=== PATIENT | female | born 1985 | race Caucasian/White ===

== ENCOUNTER → 2022-04-07 08:59 | Outpatient (CLI) | payer OTHER, SELFPAY ==
[2022-04-07 11:03] LABS: HCG Quantitative /Beta subunit 5123.3 mIU/mL
== END ==
PROVIDERS: Family Provider Family Medicine; PCP Family Medicine; Referring Provider Obstetrics & Gynecology; Visit Provider Obstetrics & Gynecology
DX: O20.9 Hemorrhage in early pregnancy, unspecified (principal); Z3A.00 Weeks of gestation of pregnancy not specified
CPT/HCPCS: 36415; 84702

== ENCOUNTER → 2022-04-09 08:30 | Outpatient (CLI) | payer OTHER, SELFPAY ==
[2022-04-09 09:15] LABS: HCG Quantitative /Beta subunit 6022.9 mIU/mL
[2022-04-09 10:48] LABS: TSH w/ Reflex to FT4 1.78 uIU/mL (0.47-4.68)
== END ==
PROVIDERS: Family Provider Family Medicine; PCP Family Medicine; Referring Provider Obstetrics & Gynecology; Visit Provider Obstetrics & Gynecology
DX: E06.3 Autoimmune thyroiditis (principal); O20.9 Hemorrhage in early pregnancy, unspecified; Z3A.00 Weeks of gestation of pregnancy not specified
CPT/HCPCS: 36415; 84443; 84702

== ENCOUNTER → 2022-04-11 12:02 | Outpatient (CLI) | payer OTHER, SELFPAY ==
[2022-04-11 12:56] LABS: HCG Quantitative /Beta subunit 1694.9 mIU/mL
== END ==
PROVIDERS: Family Provider Family Medicine; PCP Family Medicine; Referring Provider Obstetrics & Gynecology; Visit Provider Obstetrics & Gynecology
DX: O20.9 Hemorrhage in early pregnancy, unspecified (principal); Z3A.00 Weeks of gestation of pregnancy not specified
CPT/HCPCS: 36415; 84702

== ENCOUNTER → 2022-04-13 06:55 | Outpatient (CLI) | payer OTHER, SELFPAY ==
--- NOTE | 2022-04-13 06:56 | DI.US.S_ITS ---
PROCEDURE: US PELVIC COMPLETE INDICATIONS: RECENT MISCARIAGE ASSESS FOR RETAINED PRODUCTS TECHNIQUE: Real-time scanning was performed of the pelvic organs, with image documentation. Additional endovaginal scanning was necessary due to incomplete visualization of the adnexal and endometrial structures by transabdominal scanning. COMPARISON: [facility], US, PELVIC COMPLETE, 01/04/2013, 7:58. FINDINGS: Uterus: Uterus is anteverted and normal in size at 10.3 x 5.9 x 5.2 cm. The myometrium is homogeneous. The endometrium measures 8 mm combined thickness. The endometrial echo complex is homogeneous without increased vascularity. Ovaries: The right ovary measures 4.0 x 2.5 x 1.7 cm, with a calculated ovarian volume of 9.0 cc. The left ovary measures 3.3 x 3.4 x 1.7 cm, with a calculated ovarian volume of 9.5 cc. The ovaries have a normal sonographic appearance. Less than 12 follicles can be seen in each ovary. No adnexal masses are seen. Other: No pathologic free abdominal or pelvic fluid. IMPRESSION: No sonographic signs of retained products of conception. We strive to produce accurate, complete, and clear reports of imaging services. To assist us in improving patient care, this report was composed using standard report templates and voice recognition software. Therefore, it may contain abnormal punctuation, insertions and/or omissions. Occasional wrong-word or sound-alike substitutions may occur. Though we review the report and make efforts to correct it, we do recommend that the report be read carefully in proper context to recognize any text inaccuracies. Approved by: Drake Ansari M.D. on 04/13/2022 at 7:53
== END ==
PROVIDERS: Family Provider Family Medicine; PCP Family Medicine; Referring Provider Family Medicine; Visit Provider Family Medicine
DX: O03.9 Complete or unspecified spontaneous abortion without complication (principal)
CPT/HCPCS: 76830; 76856

== ENCOUNTER → 2022-11-11 09:10 | Outpatient (CLI) | payer OTHER, SELFPAY ==
[2022-11-11 09:55] LABS: Add Manual Diff / Slide Review NO; Basophils Absolute Auto 100 /uL (0-100); Eosinophils Absolute Auto 100 /uL (0-450); Hemoglobin 11.5 g/dL (12.0-16.0); Lymphocytes Absolute Auto 1300 /uL (1100-4500); Lymphocytes Percent Auto 24.2 % (25-40); Mean Corpuscular HGB Conc 32.9 % (30-36); Mean Corpuscular Volume 85.3 fL (80-100); Monocytes Absolute Auto 600 /uL (0-900); Monocytes Percent Auto 10.3 % (3-14); Neutrophils Absolute Auto 3500 /uL (1500-7000); Neutrophils Percent Auto 62.5 % (50-75); Platelet Count 242 X10^3/uL (150-400); Red Cell Distribution Width 13.2 % (11.6-14.8); White Blood Cell Count 5.6 X10^3/uL (4.5-11.0)
[2022-11-11 10:33] LABS: Alanine Aminotransferase 17 IU/L (<35); Albumin 4.3 g/dL (3.5-5.0); Albumin Globulin Ratio 1.4 (1.0-2.8); Alkaline Phosphatase 40 U/L (38-126); Aspartate Aminotransferase 20 IU/L (14-36); BUN Creatinine Ratio 10.3 (6-22); Bilirubin Total 0.5 mg/dL (0.2-1.3); Blood Urea Nitrogen 9 mg/dL (7-17); Calcium 9.6 mg/dL (8.4-10.2); Carbon Dioxide 30 mmol/L (22-32); Chloride 100 mmol/L (98-107); Estimated Glomerular Filt Rate > 60 mL/min (>60); Globulin 3.1 g/dL (1.7-4.1); Glucose 76 mg/dL (70-100); HEMOLYSIS < 15 (0-50); Sodium 137 mmol/L (137-145); Total Protein 7.4 g/dL (6.3-8.2)
[2022-11-11 10:42] LABS: Free T3, Triiodothyronine Free 2.87 pg/mL (2.77-5.27)
[2022-11-11 10:43] LABS: Vitamin D 25 Hydroxy (D3) 41.5 ng/mL (30.0-100.0)
[2022-11-11 10:56] LABS: Thyroid Stimulating Hormone 4.03 uIU/mL (0.47-4.68)
[2022-11-11 11:06] LABS: Ferritin 7 ng/mL (6-137)
[2022-11-11 11:20] LABS: Vitamin B12 730 pg/mL (239-931)
[2022-11-13 14:35] LABS: Folate, RBC 1198 ng/mL (>498); Hematocrit 33.6 % (34.0-46.6); Hemolysate 402.5 ng/mL (Not Estab.)
[2022-11-17 10:44] LABS: Percent Free Testosterone 0.94 % (0.50-2.80); Testosterone Free 0.36 ng/dL (0.10-0.85); Testosterone Total 38.1 ng/dL (10.0-55.0)
== END ==
PROVIDERS: Family Provider Family Medicine; PCP Family Medicine; Referring Provider Family Medicine; Visit Provider Family Medicine
DX: D64.9 Anemia, unspecified (principal); E03.9 Hypothyroidism, unspecified; E06.3 Autoimmune thyroiditis; R53.83 Other fatigue; E55.9 Vitamin D deficiency, unspecified
CPT/HCPCS: 36415; 80053; 82306; 82607; 82728; 82747; 83735; 84402; 84403; 84439; 84443; 84481; 85014; 85025

== ENCOUNTER 2023-05-05 18:45 | Emergency (ER) | payer OTHER, SELFPAY ==
--- NOTE | 2023-05-05 18:58 | ED.SKABFB ---
HPI - Skin/Abscess/Foreign Bdy General Stated complaint: hit in face with ball, lip laceration Time Seen by Provider: 05/05/23 18:52 History of Present Illness HPI narrative: 37-year-old female presents for evaluation of accidental facial injury that occurred just prior to arrival. Patient states she was struck in the face by a ball and began to bleed. She was very concerned because she had a Mohs procedure in the exact same area and just finished healing her wounds. She was afraid that she may have splint open her previous surgical site. Patient reports being up-to-date on her tetanus shot. Related Data Home Medications Medication Instructions Recorded Confirmed multivitamin 1 tab PO DAILY 03/30/22 04/15/23 Previous Rx's Medication Instructions Recorded ferrous sulfate 325 mg (65 mg 325 mg PO Q OTHER DAY #90 tabs 11/11/22 iron) tablet (Feosol) escitalopram oxalate 20 mg tablet 20 mg PO DAILY #90 tabs 02/16/23 (Lexapro) bupropion HCl 150 mg 24 hr tablet, 300 mg (2 x 150 mg) PO QAM #180 02/17/23 extended release tabs levothyroxine 100 mcg tablet 100 mcg PO DAILY #90 tabs 02/25/23 Allergies Allergy/AdvReac Type Severity Reaction Status Date / Time No Known Drug Allergies Allergy Unverified 04/15/23 08:24 Review of Systems Review of Systems Narrative: Negative except as noted above Patient History Medical History Nodular basal cell carcinoma (BCC) (~2022) Acne (~1994) Depression (~1998) ADHD Chicken pox (~1991) Anemia (~1998) Irregular menstrual cycle (~1995) Human papilloma virus (~2004) Herpes (~2005) Abnormal Pap smear of cervix (~2004) Hypothyroidism (~1998) Surgical History Anesthesia History of oral surgery (~2008) Family History Father Hyperlipidemia Hypertension Hypothyroidism Mother Breast cancer History of mastectomy Congestive heart failure Grandfather Prostate cancer Stomach cancer Grandmother Bladder cancer Grandfather Hyperlipidemia Hypertension Grandmother Alzheimer's disease Social History Smoking Status: Never smoker Smoking Status: Never smoker Exam Narrative Exam Narrative: Const: Awake, alert, anxious Mouth: superficial lip abrasion upper L lip. 1cm laceration underside of L upper lip, no through and through injury. Teeth normal Skin: Warm, Dry, 1cm laceration underside L upper lip Neuro: AO x3, CN II-XII grossly intact, moves all extremities MDM - Skin/Abscess/Foreign Bdy MDM Narrative Medical decision making narrative: Laceration to underside of left upper lip. No through and through injury. Teeth are normal. There is no laceration involving the vermilion border. She was up-to-date on her tetanus shot. Patient's primary concern is that she has damaged her Mohs surgical site. There was no evidence that this surgical site has been disrupted, it was extremely well healed and intact. Wound care precautions discussed with the patient at bedside. Discharge Plan Departure Patient Disposition: Home Clinical Impression: Laceration of lip Qualifiers: Encounter type: initial encounter Qualified Code(s): S01.511A - Laceration without foreign body of lip, initial encounter Activity Restrictions/Additional Instructions: Take Tylenol and Motrin as needed for pain. You may apply ice to your lip for comfort and to help with swelling. Your lip laceration we will heal on its own, however for the next several days any time you eat or drink he will need to swish your mouth with clean water. Prescriptions: No Action ferrous sulfate [Feosol] 325 mg (65 mg iron) tablet 325 mg PO Q OTHER DAY Qty: 90 0RF escitalopram oxalate [Lexapro] 20 mg tablet 20 mg PO DAILY Qty: 90 0RF bupropion HCl 150 mg tablet extended release 24 hr 300 mg PO QAM Qty: 180 0RF levothyroxine 100 mcg tablet 100 mcg PO DAILY Qty: 90 3RF multivitamin Tablet 1 tab PO DAILY Referrals: Taisha Méndez DO [Primary Care Provider] - Stand Alone Forms: Patient Portal/API
[2023-05-05 19:02] VITALS: BP 123/80; PULSE 72; RESP 18; TEMP 36.5; O2SAT 100; BMI 24.0
== END 2023-05-05 19:12 | disposition home or self-care (01) ==
PROVIDERS: Emergency Provider Emergency Medicine; Family Provider Family Medicine; PCP Family Medicine
DX: S01.511A Laceration without foreign body of lip, initial encounter (principal); W22.8XXA Striking against or struck by other objects, initial encounter
CPT/HCPCS: 99281

== ENCOUNTER → 2024-04-24 09:21 | Outpatient (CLI) | payer OTHER, SELFPAY ==
[2024-04-24 10:23] LABS: Add Manual Diff / Slide Review NO; Basophils Absolute Auto 0 /uL (0-100); Basophils Percent Auto 0.6 % (0-2); Eosinophils Absolute Auto 100 /uL (0-450); Eosinophils Percent Auto 2.1 % (2-4); Hematocrit 34.6 % (36-46); Hemoglobin 11.5 g/dL (12.0-16.0); Lymphocytes Absolute Auto 1800 /uL (1100-4500); Lymphocytes Percent Auto 33.6 % (25-40); Mean Corpuscular HGB Conc 33.3 % (30-36); Mean Corpuscular Hemoglobin 28.8 PG (26-34); Mean Corpuscular Volume 86.6 fL (80-100); Monocytes Absolute Auto 400 /uL (0-900); Monocytes Percent Auto 7.6 % (3-14); Neutrophils Absolute Auto 3000 /uL (1500-7000); Neutrophils Percent Auto 56.1 % (50-75); Platelet Count 248 X10^3/uL (150-400); Red Cell Distribution Width 12.6 % (11.6-14.8); White Blood Cell Count 5.2 X10^3/uL (4.5-11.0)
[2024-04-24 10:47] LABS: Alanine Aminotransferase 15 IU/L (<35); Albumin 4.3 g/dL (3.5-5.0); Albumin Globulin Ratio 1.6 (1.0-2.8); Alkaline Phosphatase 40 U/L (38-126); Aspartate Aminotransferase 22 IU/L (14-36); BUN Creatinine Ratio 13.5 (6-22); Bilirubin Total 0.3 mg/dL (0.2-1.3); Blood Urea Nitrogen 12 mg/dL (7-17); Calcium 9.3 mg/dL (8.4-10.2); Carbon Dioxide 29 mmol/L (22-32); Chloride 101 mmol/L (98-107); Cholesterol 217 mg/dL (140-199); Estimated Glomerular Filt Rate > 60 mL/min (>60); Globulin 2.7 g/dL (1.7-4.1); Glucose 78 mg/dL (70-100); HDL Cholesterol 92 mg/dL (40-60); HEMOLYSIS < 15 (0-50); LDL Cholesterol Calculated 114 mg/dL (<100); Potassium 4.2 mmol/L (3.4-5.1); Sodium 138 mmol/L (137-145); Triglycerides 57 mg/dL (35-150)
[2024-04-24 11:01] LABS: Follicle Stimulating Hormone 5.39 mIU/mL
[2024-04-24 11:02] LABS: Vitamin D 25 Hydroxy (D3) 35.4 ng/mL (30.0-100.0)
[2024-04-24 11:16] LABS: TSH w/ Reflex to FT4 7.38 uIU/mL (0.47-4.68)
[2024-04-24 11:20] LABS: Ferritin 6 ng/mL (6-137)
[2024-04-24 11:55] LABS: Free T4, Direct Thyroxine 0.91 ng/dL (0.78-2.19)
[2024-04-25 03:08] LABS: Insulin Level Total 4.7 uIU/mL (2.6-24.9)
[2024-04-25 04:15] LABS: CRP, High Sensitivity 0.77 mg/L (0.00-3.00)
[2024-04-25 07:09] LABS: Dehydroepiandrosterone Sulfate 72.6 ug/dL (57.3-279.2)
[2024-05-01 01:06] LABS: Percent Free Testosterone 2.12 % (0.50-2.80); Testosterone Total 28.3 ng/dL (.)
== END ==
PROVIDERS: Family Provider Family Medicine; PCP Family Medicine; Referring Provider Family Medicine; Visit Provider Family Medicine
DX: Z01.419 Encounter for gynecological examination (general) (routine) without abnormal findings (principal); E61.2 Magnesium deficiency; N95.1 Menopausal and female climacteric states; E06.3 Autoimmune thyroiditis; D64.9 Anemia, unspecified
CPT/HCPCS: 36415; 80053; 80061; 82306; 82627; 82728; 83001; 83525; 84402; 84403; 84439; 84443; 85025; 86140

== ENCOUNTER → 2024-05-18 09:54 | Outpatient (CLI) | payer OTHER, SELFPAY ==
[2024-05-18 10:45] LABS: Influenza A - CEPHEID Flu A NEGATIVE (NEGATIVE); Influenza B - CEPHEID Flu B NEGATIVE (NEGATIVE); Respiratory Syncytial Virus Negative (Negative)
[2024-05-18 10:55] LABS: COVID-19 CEPHEID 4-PLEX PCR Negative (Negative)
== END ==
PROVIDERS: Family Provider Family Medicine; PCP Family Medicine; Visit Provider Physician Assistant
DX: Z20.828 Contact with and (suspected) exposure to other viral communicable diseases (principal)
CPT/HCPCS: 0241U

== ENCOUNTER → 2024-06-20 14:30 | Outpatient (CLI) | payer OTHER, SELFPAY | PROVIDERS: Family Provider Family Medicine; PCP Family Medicine; Visit Provider Physician Assistant | DX: R30.0 Dysuria (principal) | CPT/HCPCS: 87086 ==

== ENCOUNTER → 2024-07-11 | Outpatient (CLI) | payer OTHER, SELFPAY ==
--- NOTE | 2024-07-11 12:47 | DI.MG.S_ITS ---
MM screening mammo BI: 07/11/2024. BI-RADS: 1 CLINICAL: 38-year old female for bilateral screening mammogram. Tyrer-Cuzick lifetime risk of 11.9%. No personal or first-degree family history of breast cancer. PRIOR EXAMS: No prior examinations available. MAMMOGRAPHY TECHNIQUE: 2D and 3D (tomosynthesis) digital mammographic views obtained, with additional images as needed for full coverage. Current study was also evaluated with a Computer Aided Detection (CAD) system. DENSITY C. The breasts are heterogeneously dense, which may obscure small masses. MAMMOGRAPHY FINDINGS Bilateral: No suspicious mass, asymmetry, microcalcification, or other abnormality seen. IMPRESSION: * No evidence of malignancy. RECOMMENDATIONS Bilateral * Annual screening mammography. OVERALL ASSESSMENT CATEGORY BI-RADS-1: Negative. The [employer] recommends annual screening mammography beginning at age 40 for women with average risk of breast cancer. ELECTRONICALLY SIGNED: Lawanda Montero M.D. on 07/20/2024 at 06:35:01 AM PT Interpreting Station ID: [id number]
== END ==
PROVIDERS: Family Provider Family Medicine; PCP Family Medicine; Referring Provider Family Medicine; Visit Provider Family Medicine
DX: Z12.31 Encounter for screening mammogram for malignant neoplasm of breast (principal); R92.333 Mammographic heterogeneous density, bilateral breasts
CPT/HCPCS: 77063; 77067